=== PATIENT | female | born 1940 | race Caucasian/White ===

== ENCOUNTER 2019-09-26 23:27 | Observation (INO) ==
[2019-09-26] MEDS ORDERED: ASPIRIN PO ONE (23:44)
--- NOTE | 2019-09-27 00:04 | EKG Report ---
Test Performed on : 09/27/2019 00:01:51 AM Test Reason : palpitations Blood Pressure : / mmHG Vent. Rate : 126 BPM Atrial Rate : 119 BPM P-R Int : 000 ms QRS Dur : 086 ms QT Int : 324 ms P-R-T Axes : 000 -19 022 degrees QTc Int : 469 ms Atrial fibrillation. with rapid ventricular response. Nonspecific ST abnormality Abnormal ECG No previous ECGs available Unconfirmed Result
[2019-09-27 00:53] LABS: INR 1.08; PROTIME 14.1 Seconds (11.0-16.0)
[2019-09-27 00:54] LABS: PTT 31.8 Seconds (22.3-41.8)
[2019-09-27 00:59] LABS: AGAP 12; ALB/GLOB RATIO 1.4; ALBUMIN 3.8 g/dL (3.5-5.0); ALKALINE PHOSPHATASE 61 U/L (32-104); BUN 13 mg/dL (8-22); CHLORIDE 105 mmol/L (98-107); CK PROFILE 79 U/L (24-173); COSMO 292; CREATININE 0.8 mg/dL (0.5-0.9); ESTIMATED GFR > 60; GLUCOSE 154 mg/dL (70-104); GOT 39 U/L (10-30); GPT 20 U/L (10-36); MAGNESIUM 1.8 mg/dL (1.5-2.7); POTASSIUM 3.2 mmol/L (3.5-5.1); SODIUM 145 mmol/L (136-145); TCO2 28 mmol/L (25-35); TOTAL BILIRUBIN 0.64 mg/dL (0.20-1.00); TOTAL PROTEIN 6.6 g/dL (6.3-8.3)
[2019-09-27 01:01] LABS: BASO# 0.03 X1000 (0.0-0.2); BASO% 0.4 % (0.0-0.8); EOS# 0.42 X1000 (0.0-0.7); EOS% 5.4 % (0.0-10.0); HEMATOCRIT 38.7 % (37.0-47.0); HEMOGLOBIN 12.5 g/dL (12.0-16.0); LYMPH# 2.56 X1000 (1.2-3.4); LYMPH% 33.2 % (20.5-51.1); MCH 29.6 PG (27-31); MCHC 32.3 g/dL (33-37); MCV 91.7 FL (81-99); MONO# 0.54 X1000 (0.11-0.59); MPV 10.4 FL (7.4-10.4); NEUT# 4.17 X1000 (1.4-6.5); PLT 542 X1000 (130-400); RBC 4.22 XMIL (4.2-5.4); RDW 13.6 % (11.5-14.5); WBC 7.72 X1000 (4.8-10.8)
[2019-09-27] MEDS ORDERED: KLOR-CON PO ONE (01:08)
--- NOTE | 2019-09-27 01:28 | PROVIDER DOCUMENTATION ---
HPI-General Adult - General Chief Complaint: Palpitations Stated Complaint: HIGH BP Time Seen by Provider: 09/27/19 01:07 Source: patient, family Allergies/Adverse Reactions: Patient Allergies Allergy/AdvReac Type Severity Reaction Status Date / Time azithromycin Allergy ANAPHYLAXIS Verified 09/27/19 01:50 cephalexin [From Keflex] Allergy ANAPHYLAXIS Verified 09/27/19 01:35 codeine Allergy CONSTIPATIO Verified 09/27/19 01:35 N doxycycline Allergy DIARRHEA Verified 09/27/19 01:35 latex Allergy RASH Verified 09/27/19 01:35 Penicillins Allergy ANAPHYLAXIS Verified 09/27/19 01:35 procaine [From Novocain] Allergy ANAPHYLAXIS Verified 09/27/19 01:50 rofecoxib [From Vioxx] Allergy Unknown Verified 09/27/19 01:35 shellfish derived Allergy ANAPHYLAXIS Verified 09/27/19 01:35 Home Medications: Home Medication List Medication Instructions Recorded Confirmed Last Taken Type Aspirin 1 tab PO HS 09/27/19 09/27/19 09/26/19 21:00 History Biotin 1 tab PO DAILY 09/27/19 09/27/19 09/26/19 09:00 History Cyanocobalamin (Vitamin B-12) 500 mcg PO DAILY 09/27/19 09/27/19 09/26/19 History [B-12] Lisinopril 10 mg PO DAILY 09/27/19 09/27/19 09/26/19 21:00 History Lisinopril/Hydrochlorothiazide 1 tab PO DAILY 09/27/19 09/27/19 09/26/19 09:00 History [Lisinopril-Hctz 20-12.5 mg Tab] Loratadine [Claritin] 10 mg PO DAILY 09/27/19 09/27/19 09/26/19 09:00 History Magnesium 500 mg PO DAILY 09/27/19 09/27/19 09/26/19 09:00 History Methocarbamol 1 tab PO PRN PRN 09/27/19 09/27/19 Unknown History Metoprolol Succinate E.r. [Toprol 12.5 mg PO DAILY 09/27/19 09/27/19 09/26/19 21:00 History Xl] [place]-3/Dha/Epa/Fish Oil [Fish Oil 50 mg PO DAILY 09/27/19 09/27/19 09/26/19 09:[address] 500 mg Softgel] Vit 75/Iron/Folic/Om3 1 tab PO DAILY 09/27/19 09/27/19 09/26/19 History [One A Day Dha Pack] - History of Present Illness -Gen Adult Nature of Presenting Problems: Patient with a h/o HTN, bone disorder reports palpitations, elevated BP and pulse for the past 3 days in association with pain to the left polpliteal/calf area. Reports compliance with lisinopril and metoprolol for BP. Palpitation got worse today and disturbed sleep. Denies any chest pain , sob. No fever, N/V, n diaphoresis Location of Pain/Injury: reports: other (papitation) Pain Radiation: reports: no radiation Quality of Pain: reports: none Onset/Duration: reports: unsure Timing: reports: still present Context/Activities at Onset: reports: none Modifying Factors: improves with: nothing Associated Symptoms: reports: denies symptoms Review of Systems - Adult - REVIEW OF SYSTEMS - ADULT Constitutional: reports: no symptoms reported Eyes: reports: no symptoms reported Ears, Nose, Mouth & Throat: reports: no symptoms reported Cardiovascular: reports: no symptoms reported, irregular heart rate Respiratory: reports: no symptoms reported Gastrointestinal: reports: no symptoms reported Genitourinary: reports: no symptoms reported Musculoskeletal: reports: no symptoms reported Integumentary: reports: no symptoms reported Neurological: reports: no symptoms reported Psychiatric: reports: no symptoms reported Endocrine: reports: no symptoms reported Hematologic/Lymphatic: reports: no symptoms reported Allergic/Immunologic: reports: no symptoms reported All Other Systems: Reviewed and Negative Past History - Adult - PAST MEDICAL HISTORY-ADULT Review of Records: reports: Nursing Assessment Review, Medications Reviewed, Social history reviewed & non-contributory. Cardiovascular: reports: HTN Gastrointestinal: reports: denies history Genitourinary: reports: denies history Musculoskeletal: reports: other (bone disease) Neurological: reports: denies history Psychiatric: reports: denies history Physical Exam-General - PHYSICAL EXAM-ADULT Initial Vital Signs Reviewed: Yes - CONSTITUTIONAL General Appearance: appears well, alert, no apparent distress - EYES Eyes: PERRL/EOMI - HEAD, EARS, NOSE, MOUTH & THROAT HENMT: normocephalic/atraumatic, moist mucous membranes - NECK Neck: non-tender, full range of motion, supple - RESPIRATORY Respiratory: chest non-tender, lungs clear, normal breath sounds - CARDIOVASCULAR Cardiovascular: no edema, other (irregular pulse) - GASTROINTESTINAL (ABDOMEN) Abdominal Exam: normal bowel sounds, non tender, soft - MUSCULOSKELETAL Back Exam: normal inspection, no CVA tenderness Extremity: normal range of motion, non-tender, tenderness (mild, left calf) - SKIN Integumentary: normal color - NEUROLOGIC Neurologic: dispatcher chief oil II-XII nml as tested - PSYCHIATRIC Psych/Mental Status: oriented x 3 Progress - PLAN OF CARE/RESULTS Progress/Plan/Lab Results: Vital Signs - 8 hr 09/26/19 23:33 Temperature 98.0 F Pulse Rate 139 H Respiratory Rate 18 Blood Pressure 165/101 O2 Sat by Pulse Oximetry 96 Laboratory Results - last 24 hr 09/26/19 09/27/19 09/27/19 00:16 00:16 00:16 WBC 7.72 RBC 4.22 Hgb 12.5 Hct 38.7 MCV 91.7 MCH 29.6 MCHC 32.3 L RDW Std Deviation 13.6 Plt Count 542 H MPV 10.4 Immature Gran % (Auto) 0.0 Neut % (Auto) 54.0 Lymph % (Auto) 33.2 [place] % (Auto) 7.0 Eos % (Auto) 5.4 Baso % (Auto) 0.4 Immature Gran # (Auto) 0.00 Neut # (Auto) 4.17 Lymph # (Auto) 2.56 [place] # (Auto) 0.54 Eos # (Auto) 0.42 Baso # (Auto) 0.03 PT INR PTT (Actin FS) Sodium 145 Potassium 3.2 L Chloride 105 Carbon Dioxide 28 Anion Gap 12 BUN 13 Creatinine 0.8 Estimated GFR/1.73 m2 > 60 BUN/Creatinine Ratio 16 Glucose 154 H Calculated Osmolality 292 Calcium 10.0 Magnesium 1.8 Total Bilirubin 0.64 AST 39 H ALT 20 Alkaline Phosphatase 61 Creatine Kinase 79 Troponin T High Sens [id number]-I-Ywfchkribdk Pept Total Protein 6.6 Albumin 3.8 Globulin 2.8 Albumin/Globulin Ratio 1.4 TSH 4.02 09/27/19 09/27/19 09/27/19 00:16 00:16 00:16 WBC RBC Hgb Hct MCV MCH MCHC RDW Std Deviation Plt Count MPV Immature Gran % (Auto) Neut % (Auto) Lymph % (Auto) [place] % (Auto) Eos % (Auto) Baso % (Auto) Immature Gran # (Auto) Neut # (Auto) Lymph # (Auto) [place] # (Auto) Eos # (Auto) Baso # (Auto) PT 14.1 INR 1.08 PTT (Actin FS) 31.8 Sodium Potassium Chloride Carbon Dioxide Anion Gap BUN Creatinine Estimated GFR/1.73 m2 BUN/Creatinine Ratio Glucose Calculated Osmolality Calcium Magnesium Total Bilirubin AST ALT Alkaline Phosphatase Creatine Kinase Troponin T High Sens 9 Vnu-Y-Wyaczvmnzva Pept 196 Total Protein Albumin Globulin Albumin/Globulin Ratio TSH Orders Category Date Time Status Cardiac Monitoring DIRECTED Care 09/26/19 23:44 Active Oxygen Therapy- ED Nursing DIRECTED Care 09/26/19 23:44 Active Saline Loc NOW Care 09/26/19 23:44 Active CHEST-2 VIEWS [RAD] Stat Exams 09/26/19 23:44 Taken CBC WITH ELECTRONIC DIFF [HEME] Stat Lab 09/27/19 00:16 Completed CK PROFILE [SP CHEM] Stat Lab 09/27/19 00:16 Completed COMPREHENSIVE METABOLIC PANEL [CHEM] Stat Lab 09/27/19 00:16 Completed INFLUENZA SCREEN A/B Stat Lab 09/26/19 23:44 Uncollected MAGNESIUM [CHEM] Stat Lab 09/27/19 00:16 Completed PRO B-NATRIURETIC PEPTIDE Stat Lab 09/27/19 00:16 Completed PROTIME WITH INR [COAG] Stat Lab 09/27/19 00:16 Completed PTT [COAG] Stat Lab 09/27/19 00:16 Completed TROPONIN T HIGH SENSITIVITY Stat Lab 09/27/19 00:16 Completed TSH Stat Lab 09/26/19 00:16 Completed Aspirin Med 09/26/19 23:44 Discontinued 325 mg PO NOW ONE Potassium Chloride E.r. [Klor-Con] Med 09/27/19 01:08 Discontinued 40 meq PO NOW ONE CP/SOB/Palp >45 yrs of Age Stat Oth 09/26/19 23:44 Ordered EKG [EKG] Stat Ther 09/26/19 23:38 Draft Result Diagrams: 09/27/19 00:16 09/27/19 00:16 - REASSESSMENT Reassessment #1 Time Reassessed: 02:38 Status: improving (Patient no longer has palpitation. Rate is now now in the 80s. Discussed admission as new onset afib and will start her on tamiflu. Will also chesk her tsh) - EKG 1 Time of EKG reading by physician:: 01:28 EKG Read and Signed by:: Jamel Bui EKG Interpretation (*Must complete 3 of following elements*): Abnormal Rate: 126 Rhythm: afib [place]: normal QRS: normal - CONSULTS/PCP/HOSPITALIST Notification #1 *Consult/PCP/Hospitalist*: Dr Cordon Time Discussed: 02:39 Consult Disposition: Admit (Accepts admission. Does not want anticoagulant started in the ED) Departure - Departure Date of Disposition Decision: 09/27/19 Time of Disposition Decision: 02:34 DIAGNOSIS: New onset a-fib, Influenza Disposition: ADMITTED INPATIENT 09 Certified Medical Emergency: Emergent Condition: Stable - Critical Care Note This patient required my direct & personal management of CC.: No Attestation - Physician/ TONYA Attestation Patient care was provided by Advanced Practice Provider:: No The physician spent face to face time with patient:: Yes Advanced Practice Provider documentation review:: Supervising physician onsite and consulted in the evaluation and care of this patient. The physician did have a face to face encounter with the patient.
[2019-09-27] MEDS ORDERED: TAMIFLU PO ONE (02:33)
[2019-09-27] MEDS ORDERED: TYLENOL PO PRN (04:40)
[2019-09-27] MEDS ORDERED: ROBAXIN PO PRN (04:40)
[2019-09-27] MEDS ORDERED: NS 500 ML IV ONE (04:40)
[2019-09-27] MEDS ORDERED: ZOFRAN IV PRN (04:40)
[2019-09-27] MEDS: NS 1,000 ML IV SCH ×2 (05:41→18:24)
[2019-09-27 05:47] LABS: AGAP 8; BUN 12 mg/dL (8-22); CALCIUM 10.4 mg/dL (8.8-10.2); CHLORIDE 107 mmol/L (98-107); CK PROFILE 57 U/L (24-173); COSMO 285; CREATININE 0.6 mg/dL (0.5-0.9); ESTIMATED GFR > 60; GLUCOSE 105 mg/dL (70-104); MAGNESIUM 1.9 mg/dL (1.5-2.7); POTASSIUM 3.9 mmol/L (3.5-5.1); SODIUM 143 mmol/L (136-145); TCO2 28 mmol/L (25-35)
--- NOTE | 2019-09-27 06:02 | EKG Report ---
Test Performed on : 09/27/2019 02:42:48 AM Test Reason : repeat Blood Pressure : / mmHG Vent. Rate : 077 BPM Atrial Rate : 077 BPM P-R Int : 150 ms QRS Dur : 092 ms QT Int : 390 ms P-R-T Axes : -70 -36 031 degrees QTc Int : 441 ms Unusual P axis, possible ectopic atrial rhythm. Left axis deviation Abnormal ECG When compared with ECG of 27-SEP-2019 00:01, (Unconfirmed) Ectopic atrial rhythm. has replaced Atrial fibrillation. Vent. rate has decreased BY [address] no longer depressed in Anterior leads Unconfirmed Result
--- NOTE | 2019-09-27 06:19 | Diag Imaging Result Doc PS360 ---
CHEST-2 VIEWS - 09/26/2019 INDICATION: palpitations COMPARISON: 10/09/2017 FINDINGS: Heart size is mildly enlarged. Pulmonary vascularity is normal. No infiltrates or edema. No pneumothorax or pleural effusion. IMPRESSION: Mild cardiomegaly. Electronically signed by Vicente Jimenez 09/27/2019 6:17 AM
[2019-09-27] MEDS ORDERED: FISH OIL CONCENTRATE PO SCH (09:00)
[2019-09-27] MEDS ORDERED: PRINIVIL PO SCH ×2 (09:00→21:00)
[2019-09-27] MEDS ORDERED: MAG-OX PO SCH (09:00)
--- NOTE | 2019-09-27 09:50 | HISTORY AND PHYSICAL ---
PRIMARY CARE PROVIDER: Dr. Peguero. ONCOLOGIST: Dr. Muse. CHIEF COMPLAINT: Heart palpitations. 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 Muse that is known to cause DVTs, hypertension. She has had reported palpitations in the past. She stated it was from an artery that they could not do anything about and has seen a ultrasound applications specialist in [place] 1 time about this, leg cramps, varicose veins, year- round allergies. She reports palpitations today that was disrupting her sleep. She has been taking her metoprolol. They were not associated with any chest pain, shortness of breath. She denies any fever, nausea, vomiting, diarrhea. However, over the past week, she did notice with exercise that she became more fatigued in the afternoon. She does have year- round allergies. She sneezes at night. She does get a dry throat at night. Workup in the ED, initial EKG showed atrial fibrillation with RVR. The next recheck on vital signs showed that her heart rate was back down to 84. Laboratory data showed a mildly low potassium at 3.2, a mag of 1.8, normal proBNP, normal troponin, TSH of 4.02. They tested her for the flu as well. She came back flu B positive. She was given 1 dose of Tamiflu, 40 mEq of potassium and a full dose aspirin. We will recheck her EKG, continue to trend her cardiac enzymes, continue her on Tamiflu b.i.d., give her a 500 normal saline bolus, watch her on telemetry and check an echocardiogram as well as a left lower extremity venous Doppler. She does report an extremely sore calf right behind the knee. She is worried about a blood clot secondary to receiving a shot for her bone marrow disorder that she reports is known to cause blood clots. Of note, she does have a negative D-dimer. PAST MEDICAL HISTORY: Per HPI. PAST SURGICAL HISTORY: Right ankle surgery with revisions, bilateral bunion surgery, extensive dental work, partial hysterectomy. FAMILY HISTORY: Reviewed and noncontributory. SOCIAL HISTORY: No alcohol, tobacco, or illicit drug use. Daughter is at bedside. PHYSICAL EXAMINATION: VITAL SIGNS: Temperature is 98 degrees, heart rate 84, respirations 14, blood pressure 163/86, O2 is 98% on room air. GENERAL: Ms. Henson is a pleasant 79-year-old female who is lying on the stretcher in no acute distress. HEENT: Atraumatic, normocephalic. PERRL. NECK: Supple. Trachea midline. CARDIOVASCULAR: S1, S2 appreciated. No murmurs, gallops or rubs noted. RESPIRATORY: Lung sounds clear bilaterally. GASTROINTESTINAL: Soft, nontender, nondistended. Positive bowel sounds 4 quadrants. LOWER EXTREMITIES: She does have some left calf tenderness. No lower extremity edema. Bilateral pedal pulses are palpable. NEUROLOGIC: No focal deficits noted. LABORATORY DATA: White count 7, hemoglobin and hematocrit 12 and 38, platelet count 542,000. D- dimer less than 0.27. Sodium 145, potassium 3.2, BUN 13, creatinine 0.8, blood glucose is 154, mag 1.8. AST 39. CK 79, troponin 9. TSH 4.02. ASSESSMENT AND PLAN: 1. Atrial fibrillation with rapid ventricular response. There is some question if patient does have paroxysmal atrial fibrillation. However, she is not on any blood thinners at home. She does report in the past having some type of arrhythmia relating to a smaller artery that nothing could be done about and she has seen a ultrasound applications specialist 1 time in [place] for this. We will continue on her home metoprolol. Continue to monitor electrolytes. Repeat her EKG, her heart rate is back down into the 80s, and check an echocardiogram in the a.m. 2. Mild hypokalemia. She was given 40 mEq of potassium p.o. We will recheck this morning. 3. Left calf tenderness. We will rule out blood clots. The patient is worried secondary to a new medication that she just started for her bone marrow disorder. She does have a negative D- dimer. 4. Flu B positive. We will continue with Tamiflu b.i.d., symptomatic treatment. 5. Hypertension. Continue with home medications. 6. Seasonal allergies. We will continue with home regimen. 7. Bone marrow disorder, aware. Follows Dr. Muse. Further recommendations to follow physician evaluation, laboratory and diagnostic data. Dictated by CUONG Umanzor for Duran Cordon MD I have performed a face to face diagnostic evaluation. Labs/Xrays- reviewed. Exam- Chest- clear, CV- irregular, Abd- soft. A/P- Afib with rvr- Admit, monitor on telemetry, Cardiology consult, correct electrolytes. Dr. Cordon cc: MD Heydi Selby MD Naveen T. Lobo, MD MTDD
[2019-09-27] MEDS: BIOTIN PO SCH (11:23)
[2019-09-27] MEDS: TAMIFLU PO SCH ×2 (11:23→21:22)
[2019-09-27] MEDS: VITAMIN B-12 PO SCH (11:24)
[2019-09-27] MEDS: ANAGRELIDE PO SCH (11:24)
[2019-09-27] MEDS: CLARITIN PO SCH (11:25)
[2019-09-27] MEDS: PRECARE PO SCH (11:25)
[2019-09-27] MEDS: TOPROL XL PO SCH ×2 (11:26→15:56)
[2019-09-27] MEDS ORDERED: MAG-OX PO ONE (14:53)
--- NOTE | 2019-09-27 17:06 | EKG Report ---
Test Performed on : 09/27/2019 4:49:11 PM Test Reason : atrial fib Blood Pressure : / mmHG Vent. Rate : 072 BPM Atrial Rate : 072 BPM P-R Int : 146 ms QRS Dur : 090 ms QT Int : 404 ms P-R-T Axes : -61 -14 010 degrees QTc Int : 442 ms Unusual P axis, possible ectopic atrial rhythm. Abnormal ECG When compared with ECG of 27-SEP-2019 02:42, (Unconfirmed) No significant change was found Confirmed by Aaron Colon MD ([id number]) on 09/28/2019 8:32:13 AM
--- NOTE | 2019-09-27 17:23 | PROGRESS NOTE ---
DATE: 09/27/2019 PHYSICIAN: Dr. Peguero. Also followed by Dr. Muse, I think he is following her for thrombocytopenia or thrombocytosis, actually, elevated platelet count. SUBJECTIVE: The patient is a 79-year-old with past medical history for bone marrow disorder, which she takes a shot for that she started in August and it is known to cause DVTs and hypertension. She reported palpitations in the past but she stated that this was from an artery that they could not do anything about. She sees a ship loader in [place]. She saw him one time about this. She has leg cramps, varicose veins, year round allergies. She reported palpitations for which she presented to the hospital late last night at 11:30. It was disrupting her sleep and pounding in her chest and head. She has been taking metoprolol. There were not any associated chest pains or shortness of breath. Denied any fever, nausea, vomiting, or diarrhea. However, the past week she did notice that when she exercised she is more fatigued in the afternoon. She does have year round allergies and she sneezes a lot, did get a dry throat at night. Workup in the ER - an EKG showed atrial fibrillation with rapid ventricular rate. Heart rate was back down to 84 by the time admission doctor evaluated. Potassium is 3.2. Magnesium is 1.8. She has had a normal proBNP and normal troponin. TSH was 4.02. They tested for flu and it came back positive for influenza B. She took one dose of Tamiflu, 40 mEq potassium, and a full dose of aspirin. She was admitted to the hospital. OTHER PAST MEDICAL HISTORY: Right ankle surgery and revision, bilateral bunion surgery, extensive dental work, partial hysterectomy. ADMISSION DIAGNOSES: 1. So, she was admitted with atrial fibrillation with rapid ventricular response consistent with paroxysmal atrial fibrillation. She does not have any blood thinners at home. She does report in the past having some arrhythmia related to smaller artery that they could not open up, according to her ship loader in [place]. So, we continued her on the metoprolol and supplemented electrolytes, magnesium, and potassium. 2. Mild hypokalemia. 3. Left calf tenderness. Of course, she is worried about her new medication, whether she could have a DVT. She had a negative D dimer. She was positive for influenza B with nasopharyngeal swab, so she was put on Tamiflu 75 mg twice a day. OBJECTIVE: General: On exam today she states she feels much better. It is around 4:00 in the afternoon on 09/27/2019. Vital Signs: She remains afebrile. Temperature 98.7, respirations 18, blood pressure, the last two, 143/84 and 172/79. HEENT: Pupils are equal and round. Lungs: Clear in all lung schreiber. Cardiovascular: Regular rhythm and rate without murmur or S3. Abdomen: Soft. Skin: Warm and dry. LABORATORY DATA: White blood cell count is 7720, hematocrit is 38, platelet count 542,000. Sodium 143, potassium 3.9, chloride 107, BUN is 12, creatinine 0.6. Calcium is 10.4. AST is 39. ALT is 20. Magnesium 1.9. Albumin 3.8. ProTime 14.1. INR is 1.08. PTT is 31. D dimer is less than 0.27. IMAGING: Her chest x-ray showed mild cardiomegaly. ASSESSMENT AND PLAN: 1. Atrial fibrillation with rapid ventricular response. Appears the rate has been controlled. Will check another EKG now and in the morning as apparently she is followed by ship loader for small vessel disease in the past or there is a vessel apparently that they were concerned was closing down, suspected marginal vessel. 2. Hypokalemia. Supplemented her with potassium. 3. Hypomagnesemia. Also, supplemented with magnesium. She has been taking magnesium. 4. Left calf tenderness. Her D dimer was negative. So, no sign of deep venous thrombosis. 5. Influenza B positive. She is on Tamiflu. 6. Hypertension. 7. Seasonal allergies. 8. I am not sure if it is essential thrombosis but she is followed by Dr. Muse and he has started her on a new medication, which I do not believe she can remember the name. Looking at her orders, an echocardiogram was ordered with Doppler, will see if we can get that arranged. Will ask Cardiology to review. cc: Thanh Dobbins MD
[2019-09-27] MEDS ORDERED: ASPIRIN PO SCH (21:00)
--- NOTE | 2019-09-27 23:44 | ECHO REPORT ---
ORDER DATE: 09/27/2019 MEASUREMENTS: Septal thickness 0.9, left ventricular internal diameter in diastole 4.9, posterior wall thickness 0.9, left ventricular internal diameter in systole 2.9, aortic root 2.9, left atrium 3.6. SUMMARY: 1. Adequate quality study. 2. Aortic valve is without evidence of structural abnormality and opens adequately on 2- dimensional images. Peak gradient across aortic valve is approximately 10 mmHg. Mitral, tricuspid and pulmonic valves are without evidence of structural abnormality. There is mild mitral regurgitation, mild tricuspid regurgitation, and mild pulmonic insufficiency. Estimated systolic PA pressure by Doppler is 50 to 55 mmHg, suggesting moderate pulmonary hypertension. 3. Normal left ventricular dimensions demonstrated. The estimated left ventricular ejection fraction appears to be at least 60%. No regional wall motion abnormalities evident. Left atrium is borderline enlarged. Right atrium and right ventricle are normal in size with grossly preserved right ventricular systolic function. 4. No pericardial effusion. 5. Appearance of inferior vena cava suggests normal central venous pressure. CONCLUSIONS: 1. Mild tricuspid regurgitation with moderate pulmonary hypertension by Doppler. 2. Normal left ventricular ejection fraction without regional wall motion abnormality evident. 3. Borderline left atrial enlargement. cc: Yonny Esposito MD
--- NOTE | 2019-09-28 08:06 | EKG Report ---
Test Performed on : 09/28/2019 07:25:16 AM Test Reason : afib Blood Pressure : / mmHG Vent. Rate : 068 BPM Atrial Rate : 068 BPM P-R Int : 158 ms QRS Dur : 090 ms QT Int : 434 ms P-R-T Axes : -60 -09 050 degrees QTc Int : 461 ms Unusual P axis, possible ectopic atrial rhythm. Abnormal ECG When compared with ECG of 27-SEP-2019 16:49, (Unconfirmed) No significant change was found Confirmed by Aaron Colon MD ([id number]) on 09/28/2019 8:32:49 AM
[2019-09-28 08:12] VITALS: BP 149/73
[2019-09-28] MEDS ORDERED: MAG-OX PO SCH (09:00)
[2019-09-28] MEDS ORDERED: PRINZIDE 20/12.5MG PO SCH (09:00)
[2019-09-28] MEDS ORDERED: FISH OIL CONCENTRATE PO SCH (09:00)
[2019-09-28] MEDS: TOPROL XL PO SCH (09:05)
[2019-09-28] MEDS: VITAMIN B-12 PO SCH (09:05)
[2019-09-28] MEDS: CLARITIN PO SCH (09:06)
[2019-09-28] MEDS: TAMIFLU PO SCH (09:06)
[2019-09-28] MEDS: ANAGRELIDE PO SCH (09:07)
[2019-09-28] MEDS: BIOTIN PO SCH (09:07)
[2019-09-28] MEDS: PRECARE PO SCH (09:08)
--- NOTE | 2019-09-28 10:11 | DISCHARGE SUMMARY ---
ADMISSION DATE: 09/27/2019 DISCHARGE DATE: Ms. Henson was admitted on 09/27/2019. Her doctor is Dr. Peguero. Her oncologist is Dr. Muse. She came in with heart palpitations. 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 She had reported palpitations in the past, started having some palpitations and had seen her bulk mail clerk 1 time. She had leg cramps, varicose veins, year-round allergies. She reports palpitations disrupting her sleep and had been taking her metoprolol, which her bulk mail clerk has started. She did not have any chest pain or shortness of breath. She denied any fever, nausea, vomiting, and diarrhea. She came into the emergency room and found to have atrial fibrillation with rapid ventricular rate, however, she converted back to sinus rhythm fairly quickly. She did have a mildly low potassium and magnesium 1.8. ProBNP and troponin were normal. A TSH was 4.02. Tested for flu and she did have influenza B, and so checked cardiac enzymes and was put in the hospital, appeared to have episode of paroxysmal atrial fibrillation, which had resolved. Cardiology was asked to see, and she was under the impression she had a blockage in a small vessel, however, she has no coronary artery disease. Apparently, she had some elevation of her tricuspid valve and when we repeated an echocardiogram, PA pressure is around 50 to 55, suggesting moderate pulmonary hypertension. She does give a history of snoring. She really want to go home. I recommend that she get with her bulk mail clerk, Dr. Bond to see if they can setup an ambulatory monitor and see if she is going into atrial fibrillation and get a sleep study and see if she indeed has sleep apnea, which could be contributing to her elevated pulmonary artery pressure and her mild tricuspid regurgitation. Hemodynamically looked good. No sign of active ischemia, so plan to discharge her home. Will discharge her home. She is taking anagrelide 1 mg p.o. q.a.m., aspirin 1 tablet at bedtime 81 mg, biotin 1 tablet a day, B12 500 mcg daily, lisinopril 10 mg at bedtime and then I think she takes that in the evening, and lisinopril/hydrochlorothiazide 20/12.5 one q.a.m., Claritin 10 mg a day, magnesium she takes 500 mg a day, methocarbamol 1 tab p.r.n. for muscle spasm, Toprol-XL 12.5 mg a day, [place]-3 fish oil 500 mg softgel 1 a day and then vitamin 75 one a day. She has been treated with 5 days of the Tamiflu. She needs I think 3 more days of the Tamiflu, so I will give her 3 days for 75 mg twice a day. cc: MD Karon Ronquillo MD
--- NOTE | 2019-09-28 14:34 | CARDIOLOGY CONSULTATION ---
DATE: 09/28/2019 CONSULTATION REQUESTED BY: Dr. Dobbins from the Hospitalist Service. REASON FOR CONSULTATION: Atrial fibrillation, rapid response. HISTORY: Ms. Henson presented to the emergency room on September 26 because of persistent palpitations that started in the middle of the night. In addition, she had noted episodes of spikes in her blood pressure. She was concerned about that and decided to come and seek evaluation. The patient did have an EKG at 11:38 p.m. on September 26 that showed atrial fibrillation, rapid response. Then, did get an echocardiogram yesterday that shows normal ejection fraction of left ventricle with mild tricuspid regurgitation and moderate pulmonary hypertension. Pulmonary pressure estimated at 50 to 55 mmHg. She has converted back to sinus rhythm. She is feeling better. She denies having chest pain, shortness of breath or palpitations today. Her cardiac enzymes have been checked twice. They are negative. They were done at midnight on the day of admission and then 5 hours later. ProBNP level is 196 pg/mL, which is normal. Sodium, potassium, BUN, creatinine were normal. Her chest x-ray on admission showed mild cardiomegaly, otherwise no abnormalities. PAST HISTORY: Positive for hypertension for a number of years. She follows with Dr. Peguero, and also she has an mold finisher in [place] that she follows with. She was previously evaluated by Dr. Kolby Bond on [facility]28/[facility] [place] because of dizziness. They performed extensive evaluation, including a Lexiscan MPI and echocardiogram that showed moderate to severe tricuspid regurgitation with a pulmonary pressure 37 mmHg. She also has essential thrombocythemia, and she has been followed by the Oncology Service. The patient has osteoporosis. SURGICAL HISTORY: She has had ankle replacement, bunionectomy twice, reconstruction of the foot, hysterectomy. The patient is a , lives with her daughter who is a healthcare worker. Not a smoker. She is retired. FAMILY HISTORY: Father and mother had a stroke. HOME MEDICATIONS: At the time of this admission included a Agrylin, aspirin, biotin, cyanocobalamin, lisinopril, hydrochlorothiazide, magnesium, methocarbamol, metoprolol, vitamins. ALLERGIES: She has multiple allergies including penicillin, procaine, Vioxx, shellfish, latex, doxycycline, codeine, cephalexin and azithromycin. REVIEW OF SYSTEMS: The patient acknowledges that she is no worse at night. This is something that she has had for some time. She is not overweight. She is active at home. She got her flu vaccine. At this time, they have tested her for flu, and she has turned out to be influenza B positive. PHYSICAL EXAMINATION: Vital signs: Blood pressure 149/73, temperature 97.6 degrees, pulse 78, respirations 18. General: She is awake, alert, oriented, in no distress. HEENT: Unremarkable. Chest: Clear to auscultation and percussion. Heart: Sounds regular and rhythmic. No gallop or murmur. Abdomen: Nontender. Extremities: Show good pulses, no edema. Neurologic exam: Nonfocal. Moves 4 extremities. IMPRESSION: 1. Paroxysmal atrial fibrillation. 2. Influenza type B. 3. Tricuspid regurgitation with moderate pulmonary hypertension. A question of sleep apnea syndrome. 4. Essential thrombocythemia. 5. History of osteoporosis. 6. History of hypertension. RECOMMENDATION: At this time, I would suggest to continue treatment for influenza. Continue her usual antihypertensive medications. We will recommend a loop recorder monitor versus an implantable long-term monitor to determine whether or not she is having recurrent paroxysmal atrial fibrillation, in which case she would be a good candidate for anticoagulation. Because of her underlying blood disorder, I would be a little hesitant to initiate anticoagulant at this time, especially since she is having influenza B at the same time. That might have been the precipitating factor for the atrial fibrillation. I would also recommend sleep studies, and she will call Dr. Kolby Bond, who is her established dusting and brushing machine operator, for follow-up visit. cc: Meng Corona MD
--- NOTE | 2019-09-28 21:09 | Extremity Venous Study ---
PROCEDURE NAME: Venous U/S Left Leg - 09/27/2019 VENOUS ULTRASOUND LEFT LOWER EXTREMITY: COLD TYPE ARTIST: Mine. REQUESTING PHYSICIANS: CUONG Umanzor INDICATIONS: History of popliteal cyst, evaluate for DVT. FINDINGS: Deep superficial veins of the left lower extremity were visualized along their course. All vessels were compressible with forward flow and no evidence of intraluminal thrombus. There was no popliteal cyst noted. There was deep and superficial reflux noted at [*]. IMPRESSION: No deep or superficial venous thrombosis seen in the left lower extremity and no popliteal cyst. cc: David Ling MD
== END 2019-09-28 12:35 | disposition home or self-care (01) ==
LOC: ED 23:27 → EDIPHOLD 23:27 → SUATTDRO 09-27 04:22 → EDIPHOLD 09-27 09:12 → 3N 09-27 12:40
PROVIDERS: ATTEND Emergency Medicine